=== PATIENT | male | born 1955 | race Caucasian/White ===

== ENCOUNTER 2025-09-05 10:44 | Emergency (ER) | payer MEDICARE, SELFPAY ==
[2025-09-05 10:50] VITALS: PULSE 86; TEMP 37.3; O2SAT 97; BMI 31.3
--- NOTE | 2025-09-05 10:55 | ED_ITS ---
HPI HPI - General Adult General Chief complaint: Eye Problems Stated complaint: LT EYE INJURY Time Seen by Provider: 09/05/25 10:48 Source: patient Mode of arrival: walk-in Limitations: no limitations History of Present Illness HPI narrative: 70-year-old male presented to the emergency department for irritation to his left eye. He was working under a sink 2 days ago and believes something went into his eye. He is not sure what it could be but thinks it might be a piece of particle board. Its been irritated since then. He tried washing it out. Related Data Previous Rx's ?Medication ?Instructions ?Recorded ketorolac 0.5 % eye drops (Acular) 1 drp ophthalmic (e ye) Q6H PRN 09/05/25 edema #5 mL sulfacetamide sodium 10 % eye drops 2 drp ophthalmic ( eye) Q4H #15 mL 09/05/25 Allergies Allergy/AdvReac Type Severity Reaction Status Date / Time No Known Drug Allergies Allergy Verified 09/05/25 10:50 Review of Systems ROS Narrative A ten point review of systems is negative except as noted above. PFSH PFSH Social History Little interest or pleasure in doing things: not at all Feeling down, depressed, or hopeless: not at all Exam Narrative Exam Narrative: Nurses note and vital signs reviewed General:The patient appears well and in no apparent distress.Patient is resting comfortably on cart. Skin:Warm, dry, no pallor noted.There is no rash noted. Head:Normocephalic, atraumatic Eye: Right eye is normal. Left conjunctiva is mildly injected. No foreign body is found with lid eversion. Fluorescein staining and Sousa lamp examination show no corneal abrasions. Ears, Nose, Mouth, and Throat: oral mucosa is moist. Nares patent. Cardiovascular:Regular Rate and Rhythm Respiratory:Patient is in no distress, no accessory muscle use Back:non-tender GI: Soft and nontender Musculoskeletal: The patient has no evidence of calf tenderness, no pitting edema, symmetrical pulses noted bilaterally Neurological:A&O, normal speech Psychiatric:Cooperative Constitutional Vital Signs, click to edit/add: Last Vital Signs Temp 99.1 F 09/05/25 10:50 Pulse 86 09/05/25 10:50 Resp 15 09/05/25 10:50 Pulse Ox 97 09/05/25 10:50 O2 Del Method Room Air 09/05/25 10:50 Course Vital Signs Vital signs: Vital Signs Temperature 99.1 F 09/05/25 10:50 Pulse Rate 86 09/05/25 10:50 Respiratory Rate 15 09/05/25 10:50 Pulse Oximetry 97 09/05/25 10:50 Oxygen Delivery Method Room Air 09/05/25 10:50 Temperature 99.1 F 09/05/25 10:50 Pulse Rate 86 09/05/25 10:50 Respiratory Rate 15 09/05/25 10:50 Pulse Oximetry 97 09/05/25 10:50 Oxygen Delivery Method Room Air 09/05/25 10:50 Medical Decision Making MDM Narrative Medical decision making narrative: No foreign body or corneal abrasion was present on physical exam. We have irrigated his eye with Paco lens apparatus and he feels improved and is discharged home. Treatment diagnosis and follow-up were discussed with the patient. Differential Diagnosis Differential Diagnosis: Foreign body, foreign body sensation, corneal abrasion Discharge Plan Discharge Chief Complaint: Eye Problems Clinical Impression: Foreign body sensation, left eye Patient Disposition: Home, Self-Care Time of Disposition Decision: 11:53 Condition: Good Mode of Transportation: Private Vehicle Prescriptions / Home Meds: New ketorolac [Acular] 0.5 % drops 1 drp ophthalmic (eye) Q6H PRN (Reason: edema) Qty: 5 0RF sulfacetamide sodium 10 % drops 2 drp ophthalmic (eye) Q4H Qty: 15 0RF Print Language: Prydeinig Instructions: Eye Foreign Body (ED) Referrals: GINI RUELAS [Physician, Opthalmology] - 1 week Physician,Non-Staff, MD [Primary Care Provider] - 1 week
[2025-09-05] MEDS: FLUORESCEIN SODIUM 1 MG STRIP OP (10:59)
--- OUTSIDE RECORDS SUMMARY | 2025-09-05 11:15 | XMS_ITS | Clinical Summary ---
Author Organization [facility] Address [address] [place] [address] Care Team Providers Care Inventory Management Specialist Name Role Phone Phys, Self-Refer Or No Pcp/Referring Primary Car e Provider Unavailable Allergies No known active allergies Medications MedicationSigDispense QuantityRefillsLast FilledStart DateEnd DateStatus cephalexin (KEFLEX) 500 mg capsule Take 500 mg by mouth three times daily.Active IBUPROFEN ORAL Take by mouth as needed.Active fluocinolone 0.01 % topical solution Apply to the affected area two times daily. 90 mL ctive Active Problems No known active problems Social History Tobacco UseTypesPacks/DayYears UsedDateSmoking Tobacco: FormerCigarettesQuit: 08/23/2012lcohol UseStandard Drinks/WeekCommentsYes0 (1 standard drink = 0.6 oz pure alcohol)Sex and Gender InformationValueDate RecordedSex Assigned at Not on fileLegal RbnRelt1904/30/2013 10:09 AM EDTGender IdentityNot on fileSexual OrientationNot on file Plan of Treatment Health MaintenanceDue DateLast DoneCommentsCologuard (average risk only) 4287Ejoydcntbjq1954Colorectal Cancer Hwcrqhsun1954FIT (average risk only)1954Hepatitis C Ooowqaqxw1954DTaP,Tdap,and Td Vaccines (1 - Tdap)1973Pneumococcal Vaccines 50years + (1 of 1 - PCV)02/08/2004Zoster Recombinant Vaccines (1 of 2)02/08/2004Abdominal Aortic Aneurysm (AAA) Screening 2019COVID-19 Vaccine (1 - 2024-26 season)2025Influenza Vaccine (#1) 2025Respiratory Syncytial Virus (RSV) or ages 60 years and older (1 - 1-dose 75+ series)2029Respiratory Syncytial Virus (RSV) ages 0 thru 19 monthsAged OutNo longer eligible based on patient's age to complete this topic Care Teams Team MemberRelationshipSpecialtyStart DateEnd Date Phys, Self-Refer Or No Pcp/Referring PCP - General04/30/13
[2025-09-05] MEDS: 0.9 % SODIUM CHLORIDE 500 ML 2000 ML IRR (11:22)
== END 2025-09-05 12:10 | disposition home or self-care (01) ==
PROVIDERS: Emergency Provider Emergency Medicine
DX: H57.8A2 Foreign body sensation, left eye (principal)
CPT/HCPCS: 99283; 99285